=== PATIENT | female | born 1955 | race Asian ===

== ENCOUNTER 2018-06-06 16:49 | Inpatient (IN) | payer MEDICAID ==
[~2018-06-06] VITALS: Ht 157.5 cm; Wt 57.2 kg
--- NOTE | 2018-06-06 17:10 | NUR ---
ED Nurse Note: Pt brought in by caregiver due to being combative and confused since today. Pt does not answer any questions appropriately. Being physically combative at times. Caregiver at bedside. VSS at this time. Monitor attached. Will cont to monitor.
[2018-06-06] MEDS ORDERED: LORazepam Inj 2mg/ml 1ml IM ONE ×2 (17:15→18:15)
--- NOTE | 2018-06-06 17:15 | NUR ---
Attempted to take EKG, patient extremely agitated and combative. Will attempt ekg once patient is more calm.
[2018-06-06] MEDS ORDERED: ATROVENT HFA12.9 GM IH (17:16)
[2018-06-06] MEDS ORDERED: FAMOTIDINE20 MG ORAL (17:16)
[2018-06-06] MEDS ORDERED: GABAPENTIN300 MG ORAL (17:16)
[2018-06-06] MEDS ORDERED: QUETIAPINE FUM400 MG ORAL (17:16)
[2018-06-06] MEDS ORDERED: ATORVASTATIN CA20 MG ORAL (17:16)
[2018-06-06] MEDS ORDERED: CARBAMAZEPINE200 MG ORAL (17:16)
[2018-06-06] MEDS ORDERED: AUSTEDO PO (17:16)
[2018-06-06] MEDS ORDERED: METFORMIN HCL1000 M1 ORAL (17:16)
[2018-06-06 17:41] VITALS: BP 130/80
--- NOTE | 2018-06-06 17:58 | NUR ---
ED Nurse Note: Caregiver left contact information: Saranya [phone]
[2018-06-06 18:11] LABS: ANION GAP 6 mmol/L (5-15); BLOOD UREA NITROGEN 22 mg/dL (7-18); CALCIUM 9.2 MG/DL (8.5-10.1); CARBON DIOXIDE 31 MMOL/L (21-32); CHLORIDE 105 MMOL/L (98-107); CREATININE 0.6 MG/DL (0.55-1.30); SODIUM 142 MMOL/L (136-145)
[2018-06-06] MEDS ORDERED: DiphenhydrAMINE 50mg/ml Inj IM ONE (18:15)
[2018-06-06 18:17] LABS: ALANINE AMINOTRANSFERASE 21 U/L (12-78); ALBUMIN 3.4 G/DL (3.4-5.0); ALBUMIN/GLOBULIN RATIO 0.9 (1.0-2.7); ALKALINE PHOSPHATASE 119 U/L (46-116); ASPARTATE AMINO TRANSFERASE 16 U/L (15-37); BILIRUBIN,TOTAL 0.1 MG/DL (0.2-1.0)
--- NOTE | 2018-06-06 18:20 | NUR ---
Attempted to take EKG, patient is still agitated and combative. Will attempt later. ERMD, hydraulic jack operator notified and aware.
--- NOTE | 2018-06-06 18:43 | Emergency Room Report ---
History of Present Illness General Chief Complaint: Altered Mental Status Source: EMS Present Illness HPI patient is very combative and offers essentialy no history. sent by SNF. unk onset of illness Allergies: Coded Allergies: No Known Allergies (Verified Allergy, Mild, 04/02/06) Patient History Past Medical History: DM, HTN, seizures, psych hx Past Surgical History: unable to obtain Pertinent Family History: unable to obtain Social History Narrative unknown Nursing Documentation-PMH Hx Hypertension: Yes Hx Diabetes: Yes History Of Psychiatric Problem: Yes - dementia,bipolar,schizo Review of Systems All Other Systems: limited - Due to current medical condition Physical Exam Vital Signs Date Time Temp Pulse Resp B/P (MAP) Pulse Ox O2 Delivery O2 Flow Rate FiO2 06/06/18 16:58 98.1 82 16 130/80 98 Room Air Sp02 EP Interpretation: reviewed General Appearance: normal inspection ENT: normal ENT inspection, normal pharynx, no angioedema Neck: normal inspection, supple, no bony tend Respiratory: chest non-tender, lungs clear, normal breath sounds, no rhonchi, no respiratory distress Neurologic: other - Unable to assess Psychiatric: anxious Skin: normal inspection Medical Decision Making Behavioral: Schizophrenia, Bipolar Disorder Diagnostic Impression: Primary Impression: Altered mental status Laboratory Tests Test 06/06/18 17:35 06/06/18 18:30 Sodium Level 142 MMOL/L (136-145) Potassium Level 4.0 MMOL/L (3.5-5.1) Chloride Level 105 MMOL/L (98-107) Carbon Dioxide Level 31 MMOL/L (21-32) Anion Gap 6 mmol/L (5-15) Blood Urea Nitrogen 22 mg/dL (7-18) H Creatinine 0.6 MG/DL (0.55-1.30) Estimate Glomerular Filtration Rate > 60 mL/min (>60) Glucose Level 195 MG/DL (74-106) H Calcium Level 9.2 MG/DL (8.5-10.1) Total Bilirubin 0.1 MG/DL (0.2-1.0) L Aspartate Amino Transferase (AST) 16 U/L (15-37) Alanine Aminotransferase (ALT) 21 U/L (12-78) Alkaline Phosphatase 119 U/L (46-116) H Total Protein 7.1 G/DL (6.4-8.2) Albumin 3.4 G/DL (3.4-5.0) Globulin 3.7 g/dL Albumin/Globulin Ratio 0.9 (1.0-2.7) L White Blood Count 8.2 K/UL (4.8-10.8) Red Blood Count 4.34 M/UL (4.20-5.40) Hemoglobin 12.3 G/DL (12.0-16.0) Hematocrit 38.6 % (37.0-47.0) Mean Corpuscular Volume 89 FL (80-99) Mean Corpuscular Hemoglobin 28.5 PG (27.0-31.0) Mean Corpuscular Hemoglobin Concent 32.0 G/DL (32.0-36.0) Red Cell Distribution Width 15.4 % (11.6-14.8) H Platelet Count 145 K/UL (150-450) L Mean Platelet Volume 7.0 FL (6.5-10.1) Neutrophils (%) (Auto) 56.3 % (45.0-75.0) Lymphocytes (%) (Auto) 33.6 % (20.0-45.0) Monocytes (%) (Auto) 7.3 % (1.0-10.0) Eosinophils (%) (Auto) 1.6 % (0.0-3.0) Basophils (%) (Auto) 1.2 % (0.0-2.0) EKG Diagnostic Results Rate: normal ST Segments: no acute changes Rhythm Strip Diag. Results Rate: 79 Rhythm: NSR CT/MRI/US Diagnostic Results CT/MRI/US Diagnostic Results : Impression nad Last Vital Signs Date Time Temp Pulse Resp B/P (MAP) Pulse Ox O2 Delivery O2 Flow Rate FiO2 06/06/18 17:41 98.1 18 130/80 98 Room Air 06/06/18 17:40 86 Status: improved Disposition: ADMITTED INPATIENT Condition: Stable Physician Consult: Dr. Santos to admit Referrals: NON PHYSICIAN (PCP) JAMI PERSAUD Jun 06, 2018 18:43
[2018-06-06 18:57] LABS: BASOPHILS % (AUTO) 1.2 % (0.0-2.0); EOSINOPHILS % (AUTO) 1.6 % (0.0-3.0); HEMATOCRIT 38.6 % (37.0-47.0); HEMOGLOBIN 12.3 G/DL (12.0-16.0); LYMPHOCYTES % (AUTO) 33.6 % (20.0-45.0); MEAN CORPUSCULAR VOLUME 89 FL (80-99); MONOCYTES % (AUTO) 7.3 % (1.0-10.0); NEUTROPHILS % (AUTO) 56.3 % (45.0-75.0); PLATELET COUNT 145 K/UL (150-450); RED BLOOD COUNT 4.34 M/UL (4.20-5.40); RED CELL DISTRIBUTION WIDTH 15.4 % (11.6-14.8); WHITE BLOOD COUNT 8.2 K/UL (4.8-10.8)
--- NOTE | 2018-06-06 19:10 | NUR ---
ED Nurse Note: Patient was found on the floor prior to report. No injuries noted. Patient removed IV from left hand and was bleeding. Several nurses assisted patient from the floor and held pressure on previous IV site. informed and was called to bedside. Patient adamant about getting up and putting on her clothes. Patient was assisted with putting on clothes. New Iv started by charge nurse at right forearm.
--- NOTE | 2018-06-06 19:14 | NUR ---
HAND-OFF: Report given to GERBER Hodges.
--- NOTE | 2018-06-06 19:16 | NUR ---
ED Nurse Note: Patient agitated and restless, unwilling to follow commands.
[2018-06-06] MEDS ORDERED: Haloperidol 5mg/ml Inj IM ONE (19:30)
--- NOTE | 2018-06-06 19:49 | NUR ---
ED Nurse Note: Patient requested food and is in a more comfortable state.
--- NOTE | 2018-06-06 20:43 | NUR ---
ED Nurse Note: Patient taken down for CT.
--- NOTE | 2018-06-06 20:53 | NUR ---
ED Nurse Note: patient returned from CT.
[2018-06-06] MEDS ORDERED: SODIUM CHLORIDE IV SCH (21:14)
[2018-06-06] MEDS ORDERED: Acetaminophen 650 MG SUPP RECTAL PRN (21:15)
[2018-06-06 21:42] VITALS: BP 123/61
--- NOTE | 2018-06-06 22:00 | NUR ---
NURSE NOTES: Received the report from GERBER Hodges, over telephone.
[2018-06-06 22:32] VITALS: BP 137/62
--- NOTE | 2018-06-06 22:49 | NUR ---
ED Nurse Note: Patient is sleeping comfortably. Awaiting Dr to Dr correspondence and then patient will be transported upstairs. Report was given to Trudy 30 minutes ago.
--- NOTE | 2018-06-06 23:15 | NUR ---
ED Nurse Note: Patient transported to 3E, report given to Trudy MAYES well in advances of transfer. Patient is sleeping with N/S running at 75ml/hr. Iv at right forearm 18G. Patient accompanied by RN and ER-tech to floor. Belongings accounted for with belongings sheet. Second RN to witness d/t lack of awareness of patient. patient vss.
--- NOTE | 2018-06-06 23:30 | NUR ---
NURSE NOTES: Pt came in the unit. Sleeping comfortably. No respiratory distress noted. On room air. No c/o pain/discomfort. IV site is patent and intact. Skin is intact. Belongings checked with the ER nurse Tracie. Will send the snf meds to the pharmacy in the morning. Bed in lowest position. Bed alarm is on. Call light within reach. Will continue to monitor.
[2018-06-06] MEDS ORDERED: Zolpidem 5mg tab ORAL PRN (23:45)
[2018-06-06] MEDS ORDERED: Milk of Magnesia 30ml Ud ORAL PRN (23:45)
[2018-06-07] VITALS: BP 138/78
[2018-06-07 04:00] VITALS: BP 108/70
[2018-06-07] MEDS: LORazepam 1mg tab ORAL PRN ×2 (04:19→09:42)
--- NOTE | 2018-06-07 04:30 | NUR ---
NURSE NOTES: Pt became agitated, combative, tried to hurt the staff. Charge Nurse Amado is aware.
--- NOTE | 2018-06-07 05:00 | NUR ---
NURSE NOTES: Pt refused IV fluid. Charge Nurse Amado is aware.
[2018-06-07] MEDS: NovoLOG Insulin Flexpen SUBQ SCH ×4 (06:53→21:34)
--- NOTE | 2018-06-07 07:15 | NUR ---
HAND-OFF: Report given to Chiki Hearn RN. He will take a picture on the L sole for possible diabetic ulcer.
--- NOTE | 2018-06-07 07:16 | NUR ---
NURSE NOTES: Chiki Hearn RN. will call the [facility] and [facility] Gordon to verify where exactly did the pt come from.
--- NOTE | 2018-06-07 07:30 | NUR ---
NURSE NOTES: Called Dr. Carlo Santos for a sitter order. Still waiting for the response.
--- NOTE | 2018-06-07 07:46 | NUR ---
NURSE NOTES: Dr. Santos called and instructed to contact Dr. Garrett for sitter. I endorsed it to the morning nurse Chiki Hearn RN
--- NOTE | 2018-06-07 08:00 | NUR ---
NURSE NOTES: Sent the snf meds to pharmacist.
--- NOTE | 2018-06-07 08:26 | NUR ---
NURSE NOTES: Patient is awake and sitting up at the edge of the bed. Patient is stable and not in any acute distress. Patient is agitated and refused nurses to perform body check. Patient denies pain at this time. All safety measures provided. Patient is in bed with call light within reach, Will continue to monitor.
[2018-06-07] MEDS ORDERED: QUEtiapine 200mg tab ORAL SCH (09:00)
[2018-06-07] MEDS ORDERED: 1/2 NS 1000ml IV ONE (09:27)
[2018-06-07] MEDS: carBAMazepine 200mg tab ORAL SCH ×4 (09:43→21:36)
[2018-06-07] MEDS: metFORMIN 500mg tab ORAL SCH (09:43)
[2018-06-07] MEDS ORDERED: DiphenhydrAMINE 50mg/ml Inj IM SCH ×2 (10:15→13:55)
[2018-06-07 12:00] VITALS: BP 160/102
[2018-06-07] MEDS: Haloperidol 5mg/ml Inj IM PRN (13:42)
[2018-06-07] MEDS: LORazepam Inj 2mg/ml 1ml IM PRN ×2 (13:43→21:43)
[2018-06-07] MEDS ORDERED: LORazepam Inj 2mg/ml 1ml IM SCH (13:55)
[2018-06-07] MEDS ORDERED: Haloperidol 5mg/ml Inj IM SCH (13:55)
--- NOTE | 2018-06-07 14:00 | NUR ---
NURSE NOTES: patient is agitated, combative, and wandering around the unit. Patient has [address] on [address] Garrett aware of behavior. All safety measures provided. Will continue to monitor.
--- NOTE | 2018-06-07 14:53 | History & Physical ---
History and Physical History & Physicial HP dictated # [id number] Carlo Santos MD Jun 07, 2018 14:53
[2018-06-07 16:00] VITALS: BP 131/68
--- NOTE | 2018-06-07 17:15 | History and Physical Report ---
DATE OF ADMISSION: 06/06/2018 CHIEF COMPLAINT: Change in mental status. HISTORY OF PRESENT ILLNESS: This is a 62-year-old female, who was brought in. Apparently, she was combative. She was sent in by group home facility. She was diagnosed with change in mental status and admitted. She is unable to provide any history. History is obtained from the chart. PAST MEDICAL HISTORY: Includes history of diabetes, hypertension, seizures, and psychiatric history. Apparently, the patient has history of bipolar disorder, schizophrenia, and dementia. MEDICATIONS: Reviewed in the EMR. SOCIAL HISTORY: Unobtainable. The patient lives in [place] ALLERGIES: Unknown. REVIEW OF SYSTEMS: Unobtainable. PHYSICAL EXAMINATION: GENERAL: The patient is a 62-year-old female, who looks older than stated age. VITAL SIGNS: Blood pressure 138/80, pulse 82, temperature 98.1, respiratory rate is 16. HEENT: [place] conjunctivae. Anicteric sclerae. NECK: Supple. LUNGS: Rhonchi in both lung melendez. HEART: S1 and S2, without murmurs or rubs. ABDOMEN: Soft, nontender. EXTREMITIES: No cyanosis or edema. LABORATORY FINDINGS: The CBC shows WBC of 8200, hematocrit 38.6, hemoglobin 12.3, platelets 145,000. Chemistry panel shows serum sodium 142, potassium 4, chloride 105, BUN is 22, creatinine 0.6, blood sugar is 195. ASSESSMENT: This is a 62-year-old female, who is admitted with acute encephalopathy. She has also psychiatric disease. She has diabetes and hypertension. PLAN: The patient was seen by psychiatrist, Dr. Garrett. Medications will be adjusted. She is currently on Depakote, which we will continue. Blood sugar will be followed and adjustments will be made in the patient's diabetic medications. Carlo Santos M.D. DR: Valarie JOB#: [id number] CC:
--- NOTE | 2018-06-07 18:00 | NUR ---
NURSE NOTES: Patient is asleep and calm. Patient does not need restraints at this time. All safety measures provided. Will continue to monitor.
--- NOTE | 2018-06-07 19:15 | NUR ---
NURSE NOTES: Patient removed IV. No complications noted. MD aware of patient not having IV access, MD gave new orders to DC IV fluids. Patient tolerated PO fluids and food well. Will continue to monitor.
--- NOTE | 2018-06-07 19:44 | NUR ---
HAND-OFF: Report given to Den MAYES. Patient stable.
--- NOTE | 2018-06-07 19:45 | NUR ---
NURSE NOTES: Received report from GERBER Dominguez. Received pt asleep in bed, no distress noted. Sitter at bedside. Bed in low position and locked, side rails up x 3 and padded, call light within reach. Will continue to monitor.
[2018-06-07 20:00] VITALS: BP 125/69
--- NOTE | 2018-06-07 21:43 | NUR ---
NURSE NOTES: Pt awake, restless, yelling and screaming in Azeri, pushing walker at staff member. Ativan 2mg IM given. No distress noted. Sitter at bedside. Will continue to monitor.
--- NOTE | 2018-06-07 23:00 | NUR ---
NURSE NOTES: Pt asleep in bed, no distress noted, safety measures maintained. Sitter at bedside. Will continue to monitor.
[2018-06-08] MEDS: LORazepam Inj 2mg/ml 1ml IM PRN ×3 (02:51→12:08)
--- NOTE | 2018-06-08 02:51 | NUR ---
NURSE NOTES: Pt woke up very agitated, yelling and screaming, kicking, and pushing walker to staff. Ativan and Haldol IM given. Will continue to monitor. Sitter at bedside.
[2018-06-08] MEDS: Haloperidol 5mg/ml Inj IM PRN ×3 (02:53→21:04)
--- NOTE | 2018-06-08 03:42 | NUR ---
NURSE NOTES: Pt asleep at this time. No distress noted. Sitter at bedside monitoring patient. Will continue to monitor.
[2018-06-08 06:00] VITALS: BP 130/70
[2018-06-08] MEDS: NovoLOG Insulin Flexpen SUBQ SCH ×4 (06:01→20:57)
--- NOTE | 2018-06-08 06:53 | NUR ---
NURSE NOTES: Pt awake, confused, restless, yelling and screaming. Ativan 2mg IM given. Pt sitting in bed at this time. No distress noted. Sitter at bedside. Will endorse to next nurse.
--- NOTE | 2018-06-08 07:00 | NUR ---
NURSE NOTES: Pt calm at this time eating breakfast being helped by RESEARCH SOFTWARE ENGINEER. Tolerating food well without any distress noted. Will endorse to next nurse.
--- NOTE | 2018-06-08 07:17 | NUR ---
HAND-OFF: Report given to GERBER Salcedo. Pt in stable condition.
[2018-06-08 07:43] VITALS: BP 148/83
--- NOTE | 2018-06-08 08:00 | NUR ---
NURSE NOTES: received patient walking at the hallway, accompanied by sitter. Patient is restless, refused to follow commands, no sign of distress noted. No IV access on patient. Will continue to monitor patient and follow up with the plan of care.
[2018-06-08] MEDS: carBAMazepine 200mg tab ORAL SCH ×4 (09:25→20:35)
[2018-06-08] MEDS: metFORMIN 500mg tab ORAL SCH (09:25)
--- NOTE | 2018-06-08 12:42 | General Progress Note ---
Assessment/Plan Problem List: (1) Acute encephalopathy ICD Codes: G93.40 - Encephalopathy, unspecified SNOMED: 23720047, 531522286 (2) DM (diabetes mellitus) ICD Codes: E11.9 - Type 2 diabetes mellitus without complications SNOMED: 38469659 (3) HTN (hypertension) ICD Codes: I10 - Essential (primary) hypertension SNOMED: 90922952 (4) Seizure ICD Codes: R56.9 - Unspecified convulsions SNOMED: 96130582 (5) Schizophrenia ICD Codes: F20.9 - Schizophrenia, unspecified SNOMED: 51910224 (6) Dementia ICD Codes: F03.90 - Unspecified dementia without behavioral disturbance SNOMED: 50184338 Assessment/Plan check BSs psych F/U Discussed with RN Subjective Allergies: Coded Allergies: No Known Allergies (Verified Allergy, Mild, 04/02/06) Subjective gets agitated Objective Last 24 Hour Vital Signs Date Time Temp Pulse Resp B/P (MAP) Pulse Ox O2 Delivery O2 Flow Rate FiO2 06/08/18 09:00 Room Air 06/08/18 07:43 97.6 87 18 148/83 (104) 98 06/08/18 06:00 70 19 130/70 (90) 97 06/07/18 21:00 Room Air 06/07/18 20:00 97.0 84 18 125/69 (87) 96 06/07/18 16:00 71 18 131/68 (89) 98 Intake and Output 06/07/18 06/08/18 19:00 07:00 Intake Total 1075 ml 800 ml Balance 1075 ml 800 ml Intake Oral 1000 ml 800 ml IV Total 75 ml # Voids 3 3 # Bowel Movements 1 Height (Feet): 5 Height (Inches): 2.00 Weight (Pounds): 130 Cardiovascular: normal rate Respiratory/Chest: lungs clear Edema: no edema noted Generalized Carlo Santos MD Jun 08, 2018 12:42
--- NOTE | 2018-06-08 13:22 | NUR ---
HAND-OFF: Report given to ALLEGRA Crenshaw.
--- NOTE | 2018-06-08 14:00 | NUR ---
NURSE NOTES: received patient from GERBER Banks. patient is sitting on a chair with a sitter @ bedside. quiet @ this time. ambulate with walker. will cont to monitor.
--- NOTE | 2018-06-08 14:30 | NUR ---
NURSE NOTES: patient appeared to be agitated and confused. not able to follow commands. A/A/Ox1, confused. sitter walks along with patient on the hallway. impulsive but not combative and wanders. will cont to monitor.
[2018-06-08 16:00] VITALS: BP 166/99
--- NOTE | 2018-06-08 17:54 | Consultation ---
History of Present Illness General Date patient seen: Jun 07, 2018 Chief Complaint: Altered Mental Status Present Illness HPI 62-year-old female, with hx of schizophrenia who was brought in for being combative. the pt was severely agitated and disorganized. the pt was delusional and was unable to be engaged. she was yelling and after her family left the hospital she took her walker and left her room. she attempted to leave the hospital and security stopped her and brought her back. the pt received a cocktail shot. Allergies: Coded Allergies: No Known Allergies (Verified Allergy, Mild, 04/02/06) Medication History Scheduled Atorvastatin Calcium* (Atorvastatin Calcium*), 20 MG ORAL BEDTIME, (Reported) Carbamazepine* (Carbamazepine*), 100 MG ORAL TWICE A DAY, (Reported) Famotidine (Famotidine), 20 MG ORAL TWICE A DAY, (Reported) Gabapentin* (Gabapentin*), 300 MG ORAL THREE TIMES A DAY, (Reported) Metformin Hcl* (Metformin Hcl*), 1,000 MG ORAL DAILY, (Reported) Quetiapine Fumarate* (Quetiapine Fumarate*), 300 MG ORAL QHS, (Reported) Miscellaneous Medications Ipratropium [place] (Atrovent Hfa), 12.9 GM IH, (Reported) [austedo], 6 MG PO, (Reported) Patient History Limited by: medical condition History Provided By: Family Member, Medical Record, PMD Healthcare decision maker Resuscitation status Full Code Advanced Directive on File No Past Medical/Surgical History Past Medical/Surgical History: (1) Altered mental status (2) Acute encephalopathy (3) Dementia (4) Schizophrenia (5) Seizure (6) HTN (hypertension) (7) DM (diabetes mellitus) Review of Systems Psychiatric: Reports: prior hx, hallucinations Physical Exam General Appearance: alert, confused, agitated, combative Last 24 Hour Vital Signs Date Time Temp Pulse Resp B/P (MAP) Pulse Ox O2 Delivery O2 Flow Rate FiO2 06/08/18 16:00 97.6 95 20 166/99 (121) 98 06/08/18 09:00 Room Air 06/08/18 07:43 97.6 87 18 148/83 (104) 98 06/08/18 06:00 70 19 130/70 (90) 97 06/07/18 21:00 Room Air 06/07/18 20:00 97.0 84 18 125/69 (87) 96 Intake and Output 06/07/18 06/08/18 19:00 07:00 Intake Total 1075 ml 800 ml Balance 1075 ml 800 ml Intake Oral 1000 ml 800 ml IV Total 75 ml # Voids 3 3 # Bowel Movements 1 Height (Feet): 5 Height (Inches): 2.00 Weight (Pounds): 130 Medications Current Medications Medications (Trade) Dose Ordered Sig/Ivan Route PRN Reason Start Time Stop Time Status Last Admin Dose Admin Acetaminophen (Tylenol) 650 mg Q4H PRN ORAL Mild Pain (Pain Scale 1-3) 06/06/18 23:45 07/06/18 23:44 Atorvastatin Calcium (Lipitor) 20 mg BEDTIME ORAL 06/07/18 21:00 07/07/18 20:59 06/07/18 21:35 Carbamazepine (TEGretol) 100 mg FOUR TIMES A DAY ORAL 06/07/18 09:00 07/07/18 08:59 06/08/18 17:08 Dextrose (Dextrose 50%) 25 ml Q30M PRN IV Hypoglycemia 06/06/18 23:45 07/06/18 23:44 Dextrose (Dextrose 50%) 50 ml Q30M PRN IV Hypoglycemia 06/06/18 23:45 07/06/18 23:44 Famotidine (Pepcid) 20 mg DAILY ORAL 06/07/18 09:00 07/07/18 08:59 06/08/18 09:25 Gabapentin (Neurontin) 300 mg THREE TIMES A DAY ORAL 06/07/18 09:00 07/07/18 08:59 06/08/18 17:07 Haloperidol Lactate (Haldol) 5 mg Q6H PRN IM Agitation 06/07/18 10:15 07/07/18 10:14 06/08/18 09:52 Insulin Aspart (NovoLOG) BEFORE MEALS AND HS SUBQ 06/07/18 06:30 07/07/18 06:29 06/08/18 17:16 Lorazepam (Ativan 2mg/ml 1ml) 2 mg Q4H PRN IM For Anxiety 06/07/18 10:15 06/14/18 10:14 06/08/18 12:08 Lorazepam (Ativan) 1 mg Q4H PRN ORAL For Anxiety 06/06/18 23:45 06/13/18 23:44 06/07/18 09:42 Magnesium Hydroxide (Mom) 30 ml HSPRN PRN ORAL Constipation 06/06/18 23:45 07/06/18 23:44 Metformin HCl (Glucophage) 1,000 mg DAILY ORAL 06/07/18 09:00 07/07/18 08:59 06/08/18 09:25 Risperidone (RisperDAL) 2 mg BID ORAL 06/07/18 18:00 07/07/18 17:59 06/08/18 17:07 Valproic Acid (Depakene) 500 mg TWICE A DAY ORAL 06/07/18 18:00 07/07/18 17:59 06/08/18 17:07 Zolpidem Tartrate (Ambien) 5 mg HSPRN PRN ORAL Insomnia 06/06/18 23:45 06/13/18 23:44 Assessment/Plan Problem List: (1) Schizophrenia ICD Codes: F20.9 - Schizophrenia, unspecified SNOMED: 64732132 (2) Dementia ICD Codes: F03.90 - Unspecified dementia without behavioral disturbance SNOMED: 73006590 (3) Acute encephalopathy ICD Codes: G93.40 - Encephalopathy, unspecified SNOMED: 57525793, 106287608 Assessment/Plan dc Serwilman barnett Risperdal Ignacia Tuttle dc, MD Jun 08, 2018 17:54
--- NOTE | 2018-06-08 18:58 | NUR ---
HAND-OFF: Report given to
--- NOTE | 2018-06-08 19:24 | NUR ---
CASE MANAGEMENT: INITIAL REVIEW 06/06/2018 62 YO M PRESENTED TO OUR ED FROM [facility] CC: AMS. COMBATIVE BEHAVIOR PMHx: HTN. DM. SI: AMS. DEHYDRATION. T 98.1 HR 82 RR 16 B/P 130/80 SATS 98% ON RA BUN 22 GLU 195 TBILI 0.1 ALP 119 IS: ATIVAN IV X1 NS BOLUS X1 BENADRYL IV X1 HALDOL IM X1 NS BOLUS IV X1 ZOFRAN IV X1 PATIENT ADMITTED TO MED/SURG 06/06/2018 @ 2209 DCP: PATIENT TO BE DISCHARGED TO HOME ONCE MEDICALLY CLEARED. PLAN OF CARE: PSYCH CONSULT 06/07/2018 SI: AMS. DEHYDRATION. T 96.9 HR 58 RR 18 B/P 138/78 SATS 98% ON RA NO LABS TODAY IS: DEPAKENE PO BID LIPITOR PO QHS RISPERDAL PO BID PEPCID PO QD GLUCOPHAGE PO QD INSULIN ASPART SUBQ AC/HS TEGRETOL PO QID MED/SURG STATUS DCP: PATIENT TO BE DISCHARGED TO HOME ONCE MEDICALLY CLEARED. PLAN OF CARE: SITTER AT BEDSIDE 06/08/2018 SI: AMS. DEHYDRATION. T 97.6 HR 95 RR 20 B/P 166/99 SATS 98% ON RA NO LABS TODAY IS: DEPAKENE PO BID LIPITOR PO QHS RISPERDAL PO BID PEPCID PO QD GLUCOPHAGE PO QD INSULIN ASPART SUBQ AC/HS TEGRETOL PO QID MED/SURG STATUS DCP: PATIENT TO BE DISCHARGED TO HOME ONCE MEDICALLY CLEARED. PLAN OF CARE: ADJUST PSYCH MEDS
--- NOTE | 2018-06-08 19:30 | NUR ---
NURSE NOTES: Received pt sitting in chair calm, asleep, no distress noted. Sitter at bedside. Will continue to monitor.
[2018-06-08 20:00] VITALS: BP 116/73
[2018-06-08] MEDS ORDERED: Haloperidol Decanoate 50mg Inj IM SCH (20:00)
--- NOTE | 2018-06-08 20:00 | NUR ---
NURSE NOTES: Haldol 50mg IM x once not given due to pt asleep at this time. No distress noted. Sitter at bedside. Will continue to monitor.
[2018-06-08 23:48] VITALS: BP 156/90
[2018-06-09 04:00] VITALS: BP 155/92
[2018-06-09] MEDS: LORazepam Inj 2mg/ml 1ml IM PRN (05:01)
--- NOTE | 2018-06-09 05:01 | NUR ---
NURSE NOTES: Pt awake, screaming and yelling, kicking, pushing walker to staff (sitter). Ativan 2mg IM given. Will continue to monitor.
[2018-06-09] MEDS: NovoLOG Insulin Flexpen SUBQ SCH ×4 (05:03→20:44)
--- NOTE | 2018-06-09 05:03 | NUR ---
NURSE NOTES:sitter walks along the hallway. patient impulsive but not combative and wanders . will continue to monitor .
--- NOTE | 2018-06-09 06:10 | NUR ---
NURSE NOTES: Pt lying in bed asleep at this time. No distress noted. Will continue to monitor. Sitter at bedside.
--- NOTE | 2018-06-09 07:24 | NUR ---
HAND-OFF: Report given to GERBER Vega. Pt asleep in bed and in stable condition. Sitter at bedside.
--- NOTE | 2018-06-09 07:31 | NUR ---
NURSE NOTES: Received report from Den Ordoñez RN. On rounds, patient is asleep, no s/s acute distress noted. Sitter at bedside. Walker at bedside. Fall precautions maintained. Side rails upx2, bed low and locked, call light in reach. Will continue to monitor.
[2018-06-09] MEDS: metFORMIN 500mg tab ORAL SCH (09:14)
[2018-06-09] MEDS: carBAMazepine 200mg tab ORAL SCH ×4 (09:16→20:43)
[2018-06-09 11:33] VITALS: BP 155/89
[2018-06-09] MEDS ORDERED: Haloperidol Decanoate 50mg Inj IM ONE (13:00)
[2018-06-09] MEDS ORDERED: DEPAKENE250 MG ORAL (14:10)
[2018-06-09] MEDS ORDERED: HALDOL INJECT5 MG/ML IM (14:10)
[2018-06-09] MEDS ORDERED: ATIVAN1 MG ORAL (14:10)
[2018-06-09] MEDS ORDERED: RISPERDAL1 MG ORAL (14:10)
[2018-06-09] MEDS ORDERED: CARBAMAZEPINE200 MG ORAL (14:10)
--- NOTE | 2018-06-09 14:12 | General Progress Note ---
Assessment/Plan Problem List: (1) Acute encephalopathy ICD Codes: G93.40 - Encephalopathy, unspecified SNOMED: 13262738, 034846538 (2) DM (diabetes mellitus) ICD Codes: E11.9 - Type 2 diabetes mellitus without complications SNOMED: 18999202 (3) HTN (hypertension) ICD Codes: I10 - Essential (primary) hypertension SNOMED: 82890416 (4) Seizure ICD Codes: R56.9 - Unspecified convulsions SNOMED: 23773760 (5) Schizophrenia ICD Codes: F20.9 - Schizophrenia, unspecified SNOMED: 29508491 (6) Dementia ICD Codes: F03.90 - Unspecified dementia without behavioral disturbance SNOMED: 40990650 Assessment/Plan cont as is Dc today Subjective Allergies: Coded Allergies: No Known Allergies (Verified Allergy, Mild, 04/02/06) Subjective calm Objective Last 24 Hour Vital Signs Date Time Temp Pulse Resp B/P (MAP) Pulse Ox O2 Delivery O2 Flow Rate FiO2 06/09/18 11:33 97.4 85 20 155/89 (111) 97 06/09/18 09:00 Room Air 06/09/18 04:00 98.0 85 20 155/92 (113) 97 06/08/18 23:48 98.2 86 20 156/90 (112) 98 06/08/18 21:00 Room Air 06/08/18 20:00 97.2 83 20 116/73 (87) 98 06/08/18 16:00 97.6 95 20 166/99 (121) 98 Intake and Output 06/08/18 06/09/18 19:00 07:00 Intake Total 1400 ml 1060 ml Output Total 900 ml Balance 500 ml 1060 ml Intake Oral 600 ml 1060 ml Other 800 ml Output Urine Total 900 ml # Voids 3 4 Laboratory Tests 06/09/18 12:30: Valproic Acid (Depakene) Level 55 Height (Feet): 5 Height (Inches): 2.00 Weight (Pounds): 130 Cardiovascular: normal rate Respiratory/Chest: lungs clear Carlo Santos MD Jun 09, 2018 14:12
--- NOTE | 2018-06-09 15:00 | NUR ---
NURSE NOTES: Out patient JEREMY Osuna for Mrs. Pearce called and reported she cant receive the patient for today DS to the previous room in [facility] because she is in the process of placing patient for higher level care facility at [facility]. For the placement JEREMY need 602 form to be filled out by and faxed to Thao LUNA, . To reach Thao for any further question call [phone].
--- NOTE | 2018-06-09 15:44 | NUR ---
CASE MANAGEMENT: DCPNOTE UPON DISCHARGE PATIENT WILL TRANSFER TO PREVIOUS [facility]. [address] [id number] [facility] BOARD & CARE PROVIDER HAS ACCEPTED TO PATIENT BACK PER FAMILY [phone] Addendum: 06/09/18 at 1712 by JAMES TOLBERT PATIENT NOT ACCEPTED TO THE PREVIOUS BOARD [facility] PATIENT NEEDS 602 FORM PRIOR TO ACCEPTANCE PATIENT ACCEPT TO: [facility] [address] [place] [address] FAX
--- NOTE | 2018-06-09 15:51 | NUR ---
CASE MANAGEMENT: REVIEW SI: ACUTE ENCEPHALOPATHY . SEIZURE T 97.4 HR 85 RR 20 BP 155/89 SAT 97% ROOM AIR BUN 22 IS: DEPAKENE PO BID METFORMIN PO QD MED/SURG STATUS DCP: PATIENT IS FROM BOARD AND CARE
[2018-06-09 16:00] VITALS: BP 112/77
--- NOTE | 2018-06-09 18:14 | General Progress Note ---
Assessment/Plan Problem List: (1) Schizophrenia ICD Codes: F20.9 - Schizophrenia, unspecified SNOMED: 61792039 (2) Dementia ICD Codes: F03.90 - Unspecified dementia without behavioral disturbance SNOMED: 71138200 (3) Acute encephalopathy ICD Codes: G93.40 - Encephalopathy, unspecified SNOMED: 90325339, 660540227 Assessment/Plan Risperdal 3mg po bid haldol benadry ativan depakote dc when medically cleared Subjective Date patient seen: Jun 09, 2018 Allergies: Coded Allergies: No Known Allergies (Verified Allergy, Mild, 04/02/06) Subjective the pt cont to be disorganized and agitated the pt is delusional Objective Last 24 Hour Vital Signs Date Time Temp Pulse Resp B/P (MAP) Pulse Ox O2 Delivery O2 Flow Rate FiO2 06/09/18 16:00 97.8 98 20 112/77 (89) 95 06/09/18 11:33 97.4 85 20 155/89 (111) 97 06/09/18 09:00 Room Air 06/09/18 04:00 98.0 85 20 155/92 (113) 97 06/08/18 23:48 98.2 86 20 156/90 (112) 98 06/08/18 21:00 Room Air 06/08/18 20:00 97.2 83 20 116/73 (87) 98 Intake and Output 06/08/18 06/09/18 19:00 07:00 Intake Total 1400 ml 1060 ml Output Total 900 ml Balance 500 ml 1060 ml Intake Oral 600 ml 1060 ml Other 800 ml Output Urine Total 900 ml # Voids 3 4 Laboratory Tests 06/09/18 12:30: Valproic Acid (Depakene) Level 55 Height (Feet): 5 Height (Inches): 2.00 Weight (Pounds): 130 General Appearance: alert, confused, agitated Ignacia Garrett MD Jun 09, 2018 18:14
--- NOTE | 2018-06-09 19:40 | NUR ---
HAND-OFF: Report given to Latrell MAYES.
--- NOTE | 2018-06-09 19:52 | NUR ---
NURSE NOTES: Patient received ambulating around the room with walker, appears restless, sitter is at bedside. Patient attempting to walk out of the room, sitter actively redirecting patient back inside and sit in the chair. Patient refused to be touched at this time. Unable to perform complete skin assessment at this time. Will reattempt at a later time. Will continue to monitor.
[2018-06-09 20:00] VITALS: BP 129/71
[2018-06-09 23:12] VITALS: BP 139/92
[2018-06-10 03:31] VITALS: BP 140/83
[2018-06-10] MEDS: NovoLOG Insulin Flexpen SUBQ SCH ×4 (05:08→21:00)
--- NOTE | 2018-06-10 07:42 | NUR ---
HAND-OFF: Report given to Jade Charlton RN.
--- NOTE | 2018-06-10 07:59 | NUR ---
NURSE NOTES: Received report from GERBER Sams. Patient in stable condition. No agressive actiong noted at this time. Sitter stays with the pt. Will continue to monitor.
[2018-06-10 08:00] VITALS: BP 142/78
[2018-06-10] MEDS: metFORMIN 500mg tab ORAL SCH (08:45)
[2018-06-10] MEDS: carBAMazepine 200mg tab ORAL SCH ×5 (08:45→22:31)
[2018-06-10] MEDS: LORazepam 1mg tab ORAL PRN (10:35)
--- NOTE | 2018-06-10 10:40 | NUR ---
NURSE NOTES: Patient cursed Zoltan RN/sitter and anxiety noted. Ativan 1mg po given.
[2018-06-10 12:00] VITALS: BP 140/92
--- NOTE | 2018-06-10 12:53 | General Progress Note ---
Assessment/Plan Problem List: (1) Acute encephalopathy ICD Codes: G93.40 - Encephalopathy, unspecified SNOMED: 68445626, 467547412 (2) DM (diabetes mellitus) ICD Codes: E11.9 - Type 2 diabetes mellitus without complications SNOMED: 68546866 (3) HTN (hypertension) ICD Codes: I10 - Essential (primary) hypertension SNOMED: 71502683 (4) Seizure ICD Codes: R56.9 - Unspecified convulsions SNOMED: 77155992 (5) Schizophrenia ICD Codes: F20.9 - Schizophrenia, unspecified SNOMED: 61405271 (6) Dementia ICD Codes: F03.90 - Unspecified dementia without behavioral disturbance SNOMED: 25547627 Assessment/Plan cont as is discussed with RN needs placement Subjective Allergies: Coded Allergies: No Known Allergies (Verified Allergy, Mild, 04/02/06) Subjective In NAD Objective Last 24 Hour Vital Signs Date Time Temp Pulse Resp B/P (MAP) Pulse Ox O2 Delivery O2 Flow Rate FiO2 06/10/18 12:00 97.8 82 20 140/92 (108) 97 06/10/18 09:00 Room Air 06/10/18 08:00 98.1 88 20 142/78 (99) 98 06/10/18 03:31 73 18 140/83 (102) 06/09/18 23:12 75 20 139/92 (108) 06/09/18 21:00 Room Air 06/09/18 20:00 86 20 129/71 (90) 98 06/09/18 16:00 97.8 98 20 112/77 (89) 95 Intake and Output 06/09/18 06/10/18 18:59 06:59 Intake Total 1200 ml 400 ml Balance 1200 ml 400 ml Intake Oral 1200 ml 400 ml # Voids 7 2 # Bowel Movements 1 Height (Feet): 5 Height (Inches): 2.00 Weight (Pounds): 130 Cardiovascular: normal rate Respiratory/Chest: lungs clear Edema: no edema noted Generalized Carlo Santos MD Jun 10, 2018 12:53
[2018-06-10 16:00] VITALS: BP 146/88
--- NOTE | 2018-06-10 18:00 | NUR ---
NURSE NOTES: Patient refused 1800 schedule medication.
--- NOTE | 2018-06-10 19:30 | NUR ---
HAND-OFF: Report given to Sawyer Sharma.
[2018-06-10 20:00] VITALS: BP 140/79
[2018-06-10] MEDS: Haloperidol 5mg/ml Inj IM PRN (23:24)
--- NOTE | 2018-06-10 23:24 | NUR ---
pt combative and confused.haldol im given per order sitter at bedside. side rails padded for sizsure protection.
[2018-06-11] VITALS: BP_SYST 142; BP_SYST 146; BP_DIAS 80
--- NOTE | 2018-06-11 03:18 | NUR ---
Password1
[2018-06-11 04:00] VITALS: BP 144/78
[2018-06-11] MEDS: NovoLOG Insulin Flexpen SUBQ SCH ×4 (06:00→21:36)
--- NOTE | 2018-06-11 06:00 | NUR ---
pt cused and combative on and off.sitter at bedside no seizure activity noted.
--- NOTE | 2018-06-11 07:20 | NUR ---
CHEYANNE RN Addendum: 06/11/18 at 0895 by KWESI COX RN hand off given to Cheyanne MAYES
[2018-06-11 07:57] VITALS: BP 142/79
[2018-06-11] MEDS: metFORMIN 500mg tab ORAL SCH (08:25)
[2018-06-11] MEDS: LORazepam 1mg tab ORAL PRN ×2 (08:25→21:45)
[2018-06-11] MEDS: carBAMazepine 200mg tab ORAL SCH ×4 (08:25→21:32)
--- NOTE | 2018-06-11 09:48 | NUR ---
NURSE NOTES: patient received constantly pacing inside the room with a walker and mumbling @ the same time in her language. sitter @ bedside. Does not show that she is harming herself and others. She appears confused accdg from the noc shift nurse, Silvia that speaks the same language as the patient (maltese). Patient able to intake oral medications without any problems. Appears to cooperate @ this time with v/s and medications regimen. keep bed in lowest position. siderails are up x2. made sure the room is free from objects that she can easily thrown @ the staff. will cont to monitor.
[2018-06-11 12:01] VITALS: BP 135/65
--- NOTE | 2018-06-11 12:52 | General Progress Note ---
Assessment/Plan Problem List: (1) Schizophrenia ICD Codes: F20.9 - Schizophrenia, unspecified SNOMED: 63642961 (2) Dementia ICD Codes: F03.90 - Unspecified dementia without behavioral disturbance SNOMED: 77809768 (3) Acute encephalopathy ICD Codes: G93.40 - Encephalopathy, unspecified SNOMED: 01672614, 176477540 Status: unchanged Assessment/Plan Risperdal 3mg po bid haldol benadry ativan depakote dc when medically cleared Subjective Neurologic/Psychiatric: Reports: anxiety Allergies: Coded Allergies: No Known Allergies (Verified Allergy, Mild, 04/02/06) Subjective the pt cont to be disorganized and agitated the pt is delusional the pt needs redirection Objective Last 24 Hour Vital Signs Date Time Temp Pulse Resp B/P (MAP) Pulse Ox O2 Delivery O2 Flow Rate FiO2 06/11/18 12:01 97.1 68 19 135/65 (88) 96 06/11/18 09:00 Room Air 06/11/18 07:57 97.5 87 21 142/79 (100) 99 06/11/18 04:00 97.9 83 20 144/78 (100) 98 06/11/18 00:00 97.4 80 20 146/80 (102) 96 06/10/18 21:00 Room Air 06/10/18 20:00 98.1 90 20 140/79 (99) 95 06/10/18 16:00 98.0 85 20 146/88 (107) 98 Intake and Output 06/10/18 06/11/18 18:59 06:59 Intake Total 1960 ml 120 ml Balance 1960 ml 120 ml Intake Oral 1960 ml 120 ml # Voids 8 6 # Bowel Movements 1 Height (Feet): 5 Height (Inches): 2.00 Weight (Pounds): 126 General Appearance: alert, confused, agitated Ignacia Garrett MD Jun 11, 2018 12:52
--- NOTE | 2018-06-11 15:43 | General Progress Note ---
Assessment/Plan Problem List: (1) Acute encephalopathy ICD Codes: G93.40 - Encephalopathy, unspecified SNOMED: 29530780, 533305391 (2) DM (diabetes mellitus) ICD Codes: E11.9 - Type 2 diabetes mellitus without complications SNOMED: 74624699 (3) HTN (hypertension) ICD Codes: I10 - Essential (primary) hypertension SNOMED: 23909939 (4) Seizure ICD Codes: R56.9 - Unspecified convulsions SNOMED: 36769813 (5) Schizophrenia ICD Codes: F20.9 - Schizophrenia, unspecified SNOMED: 06734085 (6) Dementia ICD Codes: F03.90 - Unspecified dementia without behavioral disturbance SNOMED: 99499127 Assessment/Plan cont as is discussed with RN needs placement Subjective Allergies: Coded Allergies: No Known Allergies (Verified Allergy, Mild, 04/02/06) Subjective In NAD Objective Last 24 Hour Vital Signs Date Time Temp Pulse Resp B/P (MAP) Pulse Ox O2 Delivery O2 Flow Rate FiO2 06/11/18 12:01 97.1 68 19 135/65 (88) 96 06/11/18 09:00 Room Air 06/11/18 07:57 97.5 87 21 142/79 (100) 99 06/11/18 04:00 97.9 83 20 144/78 (100) 98 06/11/18 00:00 97.4 80 20 146/80 (102) 96 06/10/18 21:00 Room Air 06/10/18 20:00 98.1 90 20 140/79 (99) 95 06/10/18 16:00 98.0 85 20 146/88 (107) 98 Intake and Output 06/10/18 06/11/18 18:59 06:59 Intake Total 1960 ml 120 ml Balance 1960 ml 120 ml Intake Oral 1960 ml 120 ml # Voids 8 6 # Bowel Movements 1 Height (Feet): 5 Height (Inches): 2.00 Weight (Pounds): 126 Cardiovascular: normal rate Respiratory/Chest: lungs clear Carlo Santos MD Jun 11, 2018 15:43
[2018-06-11 16:02] VITALS: BP 120/64
--- NOTE | 2018-06-11 17:32 | NUR ---
CASE MANAGEMENT: REVIEW SI: ACUTE ENCEPHALOPATHY . SEIZURE T 98.0 HR 68 RR 20 BP 146/80 SAT 96% ROOM AIR IS: DEPAKENE PO BID METFORMIN PO QD MED/SURG STATUS DCP: PATIENT IS FROM [facility] AND [facility]. PATIENT REFERRED TO [facility] AND [facility] AWAITING BED ASSIGNMENT.
--- NOTE | 2018-06-11 18:31 | NUR ---
NURSE NOTES: 602 form been completed by PMD Dr. Santos and Dr Garrett. JEREMY Conn made aware and picked up the filled out forms from respective MD's.
--- NOTE | 2018-06-11 19:01 | NUR ---
HAND-OFF: Report given to Marie.
--- NOTE | 2018-06-11 19:01 | NUR ---
NURSE NOTES:Patient received from Cheyanne Zacarias Patient stable in bed . no aggravation noted at this time sitter @ bedside . call light within reach . bed in low position at all times . will continue to monitor patient .
[2018-06-11 20:26] VITALS: BP 133/78
[2018-06-12] VITALS: BP 127/64
[2018-06-12] MEDS: LORazepam 1mg tab ORAL PRN ×2 (03:01→10:02)
[2018-06-12 04:00] VITALS: BP 147/87
[2018-06-12] MEDS: NovoLOG Insulin Flexpen SUBQ SCH ×2 (06:01→12:25)
[2018-06-12] MEDS: Haloperidol 5mg/ml Inj IM PRN (06:04)
--- NOTE | 2018-06-12 06:04 | NUR ---
NURSE NOTES: Patient combative and confused Haldol 5 mg IM given per order by MD . Sitter at bedside . call light within reach . bed in low position at all times . will continue to monitor patient.
--- NOTE | 2018-06-12 07:35 | NUR ---
HAND-OFF: Report given to ALBA Murray Addendum: 06/12/18 at 0739 by MERT BOWEN LVN HANDS -OFF :REPORT GIVEN TO SILAS Emery PLS ignore first note.
--- NOTE | 2018-06-12 07:55 | NUR ---
NURSE NOTES: Received report from Marie DINH. On rounds, patient is OOB with walker. Sitter at bedside. No s/s acute distress noted. Seizure and fall precautions maintained. Bed rails padded. Call light in reach. Will continue to monitor.
[2018-06-12 08:04] VITALS: BP 140/62
[2018-06-12] MEDS: metFORMIN 500mg tab ORAL SCH (08:54)
[2018-06-12] MEDS: carBAMazepine 200mg tab ORAL SCH (08:56)
--- NOTE | 2018-06-12 09:54 | NUR ---
CASE MANAGEMENT: DCPNOTE UPON DISCHARGE PATIENT WILL TRANSFER TO [facility] [address] [place] [id number] [phone] PH. 602 FORM EMAILED TO ZIA ARDON [email or web address] FAMILY IN AGREEMENT WITH PATIENT TRANSFERRING TO THIS FACILITY. FAMILY PROVIDED NAME AND INFORMATION FOR THIS FACILITY DUE TO PATIENT NOT BEING ACCEPTED BACK TO PREVIOUS BOARD AND CARE. TRANSPORTATION VIA [facility] [id number] ETA 12:00
--- NOTE | 2018-06-12 10:08 | NUR ---
ADDRESS CORRECTION: [id number] [place] [address]
[2018-06-12] MEDS ORDERED: KLONOPIN1 MG ORAL (12:05)
[2018-06-12 12:06] VITALS: BP 146/55
[2018-06-12 12:50] VITALS: BP 126/74
--- NOTE | 2018-06-12 13:01 | NUR ---
NURSE NOTES: Patient discharged at 1258. Transferred safely to [facility], belongings checked, verified and given to ambulance staff. Called and gave report to Juan at [facility]. Sent Rx from pharmacy and paper Rx from MD with ambulance staff. Patient's walker sent with ambulance staff. Discharge instructions given to Juan from [facility]. Per Tierney Fuchs and Osmel to be d/c on discharge, unable to enter in [employer], made note on discharge instructions that Rx are d/c, made copy and placed in chart. Per note from Senia LUNA, family is aware that patient is going to this facility. Skin intact except report of left diabetic foot ulcer, patient would not allow me to assess or take photo. Patient had no IV. VS assessed and stable on discharge.
--- NOTE | 2018-06-12 23:24 | General Progress Note ---
Assessment/Plan Problem List: (1) Schizophrenia ICD Codes: F20.9 - Schizophrenia, unspecified SNOMED: 38847276 (2) Dementia ICD Codes: F03.90 - Unspecified dementia without behavioral disturbance SNOMED: 64584470 (3) Acute encephalopathy ICD Codes: G93.40 - Encephalopathy, unspecified SNOMED: 19760614, 963450422 Assessment/Plan Risperdal 3mg po bid haldol benadry ativan depakote dc when medically cleared klonopin 1mg po bid Subjective Neurologic/Psychiatric: Reports: anxiety, depressed, emotional problems Allergies: Coded Allergies: No Known Allergies (Verified Allergy, Mild, 04/02/06) Subjective the pt cont to be disorganized and agitated the pt is delusional the pt needs redirection yelling Objective Last 24 Hour Vital Signs Date Time Temp Pulse Resp B/P (MAP) Pulse Ox O2 Delivery O2 Flow Rate FiO2 06/12/18 12:50 86 20 126/74 (91) 98 06/12/18 12:06 97.4 79 20 146/55 (85) 99 06/12/18 09:00 Room Air 06/12/18 08:04 98.7 80 21 140/62 (88) 99 06/12/18 04:00 97.5 87 18 147/87 (107) 97 06/12/18 00:00 98.0 70 17 127/64 (85) 96 Intake and Output 06/11/18 06/12/18 19:00 07:00 Intake Total 480 ml 1360 ml Balance 480 ml 1360 ml Intake Oral 480 ml 1360 ml # Voids 5 3 # Bowel Movements 13 Height (Feet): 5 Height (Inches): 2.00 Weight (Pounds): 126 General Appearance: alert, confused, agitated Ignacia Garrett MD Jun 12, 2018 23:24
--- NOTE | 2018-06-13 10:54 | Discharge Summary ---
Discharge Summary Discharge Summary _ DATE OF ADMISSION: 06/06/2018 DATE OF DISCHARGE: 06/12/2018 DISCHARGED BY: Dr. Carlo Santos CONSULTANTS: Dr. Ignacia Garrett BRIEF HOSPITAL COURSE: Patient is a 62-year-old female, who was brought in apparently as she was combative. She was sent in by [facility] due to altered mental status. She has medical history significant for diabetes, hypertension, seizure disorder, dementia, bipolar disorder and schizophrenia. On evaluation at the ED, vital signs were stable. Blood work did not show any leukocytosis. Hemoglobin and hematocrit were stable. CMP normal. CT head and chest x-ray were done, however, no official report. She was admitted for evaluation of encephalopathy. Psychiatric evaluation was done. Patient was severely agitated and disorganized. Patient was delusional and was unable to be engaged. She was yelling and was attempting to leave the hospital. She was given Risperdal. Seroquel was discontinued. She was given combination of Haldol, Ativan and Benadryl. Patient continued to be disorganized and agitated. Patient was delusional and needs redirection. Risperdal was increased to 3 mg p.o. twice daily. She was eventually started on Klonopin 1 mg twice daily and Depakote 750 twice daily. Patient will need placement upon discharge. She was referred and was accepted to [facility]. FINAL DIAGNOSES: Acute encephalopathy Diabetes mellitus Hypertension Seizure Schizophrenia Dementia DISPOSITION: Patient was discharged to [facility] DISCHARGE MEDICATIONS: Refer to Discharge Medication List. DISCHARGE INSTRUCTIONS: Follow-up with PMD in a week. I have been assigned to dictate discharge summary on this account, and I was not involved in the patient's management. America Gonzalez NP Jun 13, 2018 10:54
== END 2018-06-12 12:58 | disposition home or self-care (01) | DRG 52 ==
LOC: EMR 18:04 → EDBEDREQ 21:55 → 3E 22:09
DX: G93.40 Encephalopathy, unspecified (principal); F20.9 Schizophrenia, unspecified; F03.90 Unspecified dementia, unspecified severity, without behavioral disturbance, psychotic disturbance, mood disturbance, and anxiety; E11.9 Type 2 diabetes mellitus without complications; I10 Essential (primary) hypertension; G40.909 Epilepsy, unspecified, not intractable, without status epilepticus; F31.9 Bipolar disorder, unspecified; F22 Delusional disorders; R45.1 Restlessness and agitation
CPT/HCPCS: 36415; 70450; 71045; 80053; 80164; 82962; 85025; 87081; 93005; 96360; 96361; 96372; 99285; J1815